=== PATIENT | female | born 1965 | race Caucasian/White ===

== ENCOUNTER → 2020-08-01 08:04 | Outpatient (CLI) | payer OTHER, SELFPAY ==
--- NOTE | ~2020-08-01 | XR_ITS ---
EXAMINATION: XR chest 2V DATE: 08/01/2020 08:19 INDICATION: Cough. TECHNIQUE: Frontal and lateral views of the chest were obtained. COMPARISON: None. FINDINGS: There is mild atelectasis in right middle lobe. No pleural effusion or pneumothorax. The he art size is normal. There are surgical clips in right anterior chest wall. IMPRESSION: 1. Mild atelectasis in right middle lobe. Reviewed, dictated and finalized at location B.
== END ==
PROVIDERS: PCP Internal Medicine; Visit Provider Internal Medicine
DX: E66.01 Morbid (severe) obesity due to excess calories (principal); R91.8 Other nonspecific abnormal finding of lung field
CPT/HCPCS: 71046

== ENCOUNTER → 2021-01-13 08:10 | Outpatient (CLI) | payer OTHER, SELFPAY ==
--- NOTE | ~2021-01-13 | CT_ITS ---
EXAMINATION: CT diagnostic chest wo con DATE: 01/13/2021 08:35 INDICATION: Abnormal sputum. Cough. TECHNIQUE: Computed tomography (CT) of the chest was performed without intravenous contrast. The dose -length product was 492.91 mGy-cm. Automated exposure control and iterative reconstruction technique were employed. COMPARISON: Chest x-ray dated 08/01/2020 FINDINGS: Heart size is normal. No significant pleural or pericardial effusion. There are mild periph eral interstitial changes of the right upper and middle lobe, likely chronic. No focal airspace consolidation. No endobronchial lesions. No pneumothorax. No suspicious pulmonary nodules or masses. Mild thoracic spondylosis. No acute osseous abnormality. IMPRESSION: 1. Mild peripheral interstitial infiltrates of the right upper and middle lobe, likely chronic. Reviewed, dictated and finalized at location A. [employer]
== END ==
PROVIDERS: PCP Internal Medicine; Visit Provider Internal Medicine
DX: R09.3 Abnormal sputum (principal); R05.9 Cough, unspecified; R91.8 Other nonspecific abnormal finding of lung field
CPT/HCPCS: 71250